=== PATIENT | male | born 1960 | race Caucasian/White ===

== ENCOUNTER 2021-12-29 06:35 | Emergency (ER) | payer MEDICAID ==
[2021-12-29 06:50] VITALS: BP 131/82; PULSE 71
[2021-12-29] MEDS ORDERED: Lidocaine 1% 10 ML MDV INJECT ONE (07:08)
== END 2021-12-29 07:45 | disposition home or self-care (01) ==
LOC: JD.ED 06:35
DX: L02.416 Cutaneous abscess of left lower limb (principal); J45.909 Unspecified asthma, uncomplicated; F17.210 Nicotine dependence, cigarettes, uncomplicated; Z79.899 Other long term (current) drug therapy; Z90.49 Acquired absence of other specified parts of digestive tract
CPT/HCPCS: 10060; 99283

== ENCOUNTER 2022-05-02 20:19 | Emergency (ER) | payer MEDICAID ==
[2022-05-02] MEDS: LORazepam 2 MG/ML SDV IM ONE ×2 (20:51→21:35)
[2022-05-02] MEDS ORDERED: Sodium Chloride 0.9% 10 ML Syringe FLUSH PRN (22:31)
[2022-05-02] MEDS ORDERED: Sodium Chloride 0.9% 1,000 ML IV ONE ×2 (22:32→23:38)
[2022-05-02] MEDS ORDERED: Magnesium Sulfate/Water 2 GM in Premix Bag 1 BAG IV ONE (23:37)
[2022-05-03 03:19] VITALS: BP 142/89; PULSE 87
== END 2022-05-03 03:10 | disposition home or self-care (01) ==
LOC: JD.ED 20:19
DX: R82.5 Elevated urine levels of drugs, medicaments and biological substances (principal); Z79.899 Other long term (current) drug therapy; Z90.49 Acquired absence of other specified parts of digestive tract
CPT/HCPCS: 36415; 80053; 80306; 82550; 84484; 85025; 93005; 96361; 96365; 96372; 99284; J2060; J3475; J3490; J7030

== ENCOUNTER 2022-07-06 21:41 | Emergency (ER) | payer MEDICAID ==
[2022-07-06 21:56] VITALS: BP 130/79; PULSE 83
[2022-07-06] MEDS ORDERED: Lidocaine 1% 10 ML MDV INJECT ONE (21:56)
[2022-07-06] MEDS ORDERED: Doxycycline Monohydrate 100 MG Cap PO ONE (21:56)
== END 2022-07-06 22:39 | disposition home or self-care (01) ==
LOC: JD.ED 21:41
DX: L02.414 Cutaneous abscess of left upper limb (principal); J45.909 Unspecified asthma, uncomplicated; B96.89 Other specified bacterial agents as the cause of diseases classified elsewhere
CPT/HCPCS: 10060; 87070; 87075; 87077; 87186; 87205; 99282; 99283; A9270-GY; J3490

== ENCOUNTER 2023-10-14 17:28 | Emergency (ER) | payer MEDICAID ==
[2023-10-14 18:17] LABS: BASOPHILS ABSOLUTE AUTO 0.1 K/mm3 (0.0-0.2); BASOPHILS PERCENT AUTO 1.1 % (0.0-1.0); EOSINOPHILS ABSOLUTE AUTO 0.1 K/mm3 (0.0-0.4); EOSINOPHILS PERCENT AUTO 1.8 % (0.0-6.0); HEMATOCRIT 48.1 % (42.0-52.0); HEMOGLOBIN 16.4 gm/dl (14.0-18.0); IMMATURE GRAN ABSOLUTE AUTO 0.01 K/mm3 (0.00-0.05); IMMATURE GRAN PERCENT AUTO 0.1 % (0.0-0.4); LYMPHOCYTES ABSOLUTE AUTO 2.2 K/mm3 (1.0-4.8); LYMPHOCYTES PERCENT AUTO 30.1 % (24.0-44.0); MEAN CORPUSCULAR HEMOGLOBIN 30.2 pg (28.0-32.0); MEAN CORPUSCULAR HGB CONC 34.1 g/dl (32.0-36.0); MEAN CORPUSCULAR VOLUME 88.6 fl (83.0-99.0); MEAN PLATELET VOLUME 9.3 fl (9.4-12.4); MONOCYTES ABSOLUTE AUTO 0.7 K/mm3 (0.0-0.8); MONOCYTES PERCENT AUTO 9.7 % (0.0-8.0); NEUTROPHILS ABSOLUTE AUTO 4.1 K/mm3 (1.8-7.7); NEUTROPHILS PERCENT AUTO 57.2 % (41.0-71.0); PLATELET COUNT,PLT 263 K/mm3 (150-400); RED BLOOD CELL COUNT 5.43 M/mm3 (4.52-5.90); WHITE BLOOD CELL COUNT,WBC 7.18 K/mm3 (3.9-11.3)
[2023-10-14 19:00] LABS: INR 1.05; PROTHROMBIN TIME 11.2 SECONDS (9.7-12.0)
[2023-10-14 19:01] LABS: PTT,PARTIAL THROMBOPLSTIN TIME 24.7 SECONDS (21.7-31.4)
[2023-10-14 19:07] LABS: A/G RATIO 0.9 (1-2); ALANINE AMINOTRANSFERASE,ALT 22 U/L (16-63); ALBUMIN 3.4 g/dl (3.4-5.0); ALKALINE PHOSPHATASE 98 U/L (46-116); ANION GAP 12.1 (5-15); ASPARTATE AMNIOTRANSFERASE,AST 11 U/L (15-37); BILIRUBIN TOTAL 0.7 mg/dL (0.2-1.0); BLOOD UREA NITROGEN,BUN 22 mg/dL (7-18); BUN/CREATININE RATIO 16.9 (14-18); CARBON DIOXIDE,CO2 27 mEq/L (21-32); CHLORIDE,CL 106 mEq/L (98-107); CREATININE 1.3 mg/dL (0.7-1.3); ESTIMATED GFR 62 mL/min (>60); GLUCOSE RANDOM 70 mg/dL (70-99); POTASSIUM,K 4.1 mEq/L (3.5-5.1); PROTEIN TOTAL,TP 7.1 g/dl (6.4-8.2); SODIUM,NA 141 mEq/L (136-145)
[2023-10-14 19:10] LABS: TROPONIN I HIGH SENSITIVITY < 4 pg/mL (<=76)
[2023-10-14] MEDS: cloNIDine 0.1 MG Tab PO ONE (19:35)
[2023-10-14] MEDS: Nicotine 14 MG/24 Hr Patch TRDERM ONE (19:51)
[2023-10-14] MEDS: LORazepam 1 MG Tab PO ONE (21:06)
[2023-10-14 21:10] VITALS: BP 113/83; PULSE 54
== END 2023-10-14 21:06 | disposition home or self-care (01) ==
LOC: JD.ED 17:28
DX: R07.2 Precordial pain (principal); F11.23 Opioid dependence with withdrawal; J45.909 Unspecified asthma, uncomplicated; Z86.16 Personal history of COVID-19
CPT/HCPCS: 36415; 71045; 71045-26; 80053; 84484; 85025; 85610; 85730; 93005; 93010; 99283; 99285; A9270-GY